=== PATIENT | female | born 1990 | race Caucasian/White ===

== ENCOUNTER 2018-01-09 06:38 | Day surgery (SDC) | payer BC ==
[2018-01-08 12:17] VITALS: BMI 26.5
[2018-01-09 09:13] VITALS: BP 115/74; TEMP 99.6
[2018-01-09 09:45] LABS: CSF, Glucose 59 mg/dl (40-70); CSF, Protein 27 mg/dL (15-40)
--- NOTE | 2018-01-09 11:02 | RAD ---
FLUOROSCOPICALLY GUIDED LUMBAR PUNCTURE: HISTORY: Papilledema. RADIATION DOSIMETRY: Fluoroscopy for 0.4 minutes. DAP 128 mGy per m2. FINDINGS: AP and lateral view financial operations consultant radiographs demonstrate no significant evidence of abnormalities seen. The right L1-L2 interlaminar space was localized. The overlying skin was prepped and draped in the u sual sterile manner. A 1% Lidocaine solution was used to anesthetize the overlying soft tissues. A 22 gauge spinal needle was placed into the subarachnoid space. A total of 8 mL of clear cerebrospina l fluid was removed. The specimen was sent to pathology and cytology. IMPRESSION: Successful fluoroscopically guided lumbar puncture. No significant difficulties encountered during t he course of the lumbar puncture. POS: [facility]
[2018-01-09 12:55] LABS: Color Of CSF Supernatant COLORLESS (Colorless); Tube # 2; Unspun CSF Color COLORLESS (Colorless)
== END 2018-01-09 09:35 | disposition home or self-care (01) ==
LOC: RAD 06:38
PROVIDERS: ATTEND Internal Medicine
PROC: B01BYZZ Fluoroscopy of Spinal Cord using Other Contrast (ICD-10-PCS; principal; 2018-01-09)
PROC: 009U3ZX Drainage of Spinal Canal, Percutaneous Approach, Diagnostic (ICD-10-PCS; principal; 2018-01-09)
DX: H47.11 Papilledema associated with increased intracranial pressure (principal); Z88.8 Allergy status to other drugs, medicaments and biological substances
CPT/HCPCS: 62270; 82945; 84157; 87205

== ENCOUNTER 2018-04-02 09:42 | Outpatient (CLI) | payer BC ==
--- NOTE | 2018-04-02 10:37 | RAD ---
CHEST TWO VIEWS: History: Dyspnea. Comparison: 01-31-06 FINDINGS: Cardiac silhouette and pulmonary vasculature are unremarkable. Mediastinum is midline. No confluent a irspace consolidation, pneumothorax or pleural fluid. IMPRESSION: No active cardiopulmonary abnormalities are demonstrated. POS: [facility]
== END 2018-04-02 09:43 | disposition home or self-care (01) ==
LOC: BICRAD 09:42
PROVIDERS: ATTEND Family Medicine
DX: R06.02 Shortness of breath (principal)
CPT/HCPCS: 36415; 71046; 80053; 84439; 84443; 84479; 85025

== ENCOUNTER 2018-04-16 09:10 | Outpatient (CLI) | payer BC ==
--- NOTE | 2018-04-16 10:54 | ULT ---
THYROID ULTRASOUND: HISTORY: E01.0. COMPARISON: Thyroid ultrasound from 02/06/2017. FINDINGS: The right lobe of the thyroid measures 1.2 x 4.8 x 1.4 cm. The left lobe of the thyroid measures 4 x 1.3 x 1.5 cm. Within the left of the thyroid is a hypoechoic, [id number] nodule, measuring 1.9 x 1 x 1.3 cm, size increased from the comparison examination. IMPRESSION: Size increased TI-RADS 4-Moderately suspicious nodule, left lobe of thyroid, which now meets TI-RADS criteria for fine needle aspiration, for which this is recommended. CODE T POS: [facility]
== END 2018-04-16 09:11 | disposition home or self-care (01) ==
LOC: BICULT 09:10
PROVIDERS: ATTEND Family Medicine
DX: E01.0 Iodine-deficiency related diffuse (endemic) goiter (principal)
CPT/HCPCS: 76536

== ENCOUNTER 2018-09-05 07:58 | Outpatient (CLI) | payer BC ==
--- NOTE | 2018-09-05 09:57 | ULT ---
THYROID ULTRASOUND: INDICATION: History of nodule swelling. COMPARISON: Prior exam dated 04/15/2018. FINDINGS: There has been interval removal of the left thyroid lobe. The right thyroid lobe measures 3.8 x 1.5 x 1 cm. No focal thyroid lesion is evident. The visualized thyroid isthmus is not sonographically a pparent and may be surgically absent. IMPRESSION: 1. Interval left thyroidectomy. 2. No focal lesion identified within the right thyroid gland. POS: [facility]
== END 2018-09-05 07:59 | disposition home or self-care (01) ==
LOC: SCSULT 07:58
PROVIDERS: ATTEND Otolaryngology Plastic Surgery within the Head & Neck
DX: E04.1 Nontoxic single thyroid nodule (principal); R22.1 Localized swelling, mass and lump, neck; E89.0 Postprocedural hypothyroidism
CPT/HCPCS: 76536

== ENCOUNTER 2019-12-17 10:17 | Outpatient (CLI) | payer BC ==
--- NOTE | 2019-12-17 11:09 | ULT ---
Exam: Thyroid ultrasound COMPARISON: 09/05/2018 HISTORY: Iron deficiency related goiter FINDINGS: Right thyroid lobe measures 1.4 x 5.1 x 1.5 cm Thyroid isthmus measures 0.2 cm Left thyroid lobe is presumed to be surgically absent Thyroid nodules: No solid or cystic nodules throughout the thyroid gland IMPRESSION: 1. Previous left thyroid lobectomy 2. No focal lesion identified in the right thyroid lobe.
== END 2019-12-17 10:18 | disposition home or self-care (01) ==
LOC: BICULT 10:17
PROVIDERS: ATTEND Family Medicine
DX: E01.0 Iodine-deficiency related diffuse (endemic) goiter (principal); E89.0 Postprocedural hypothyroidism
CPT/HCPCS: 76536

== ENCOUNTER 2020-09-20 09:28 | Outpatient (CLI) | payer BC | END 2020-09-20 09:29 | disposition home or self-care (01) | LOC: BICRAD 09:28 | PROVIDERS: ATTEND Family Medicine | DX: R06.02 Shortness of breath (principal) | CPT/HCPCS: 71046 ==

== ENCOUNTER 2023-01-25 11:44 | Outpatient (CLI) | payer BC | END 2023-01-25 11:45 | disposition home or self-care (01) | LOC: RAD 11:44 | PROVIDERS: ATTEND Internal Medicine Rheumatology | DX: M46.1 Sacroiliitis, not elsewhere classified (principal) | CPT/HCPCS: 72202 ==